=== PATIENT | male | born 1965 | race Caucasian/White ===

== ENCOUNTER 2019-06-04 09:49 | Emergency (ER) | payer SELFPAY ==
[2019-06-04] MEDS ORDERED: Acetaminophen 500 MG TAB ONE ×2 (10:45→10:49)
[2019-06-04] MEDS ORDERED: Ketorolac Tromethamine 30 MG/ML VIAL ONE (10:45)
== END 2019-06-04 11:04 | disposition home or self-care (01) ==
LOC: ERS 09:49
DX: K02.9 Dental caries, unspecified (principal); F41.9 Anxiety disorder, unspecified; F17.210 Nicotine dependence, cigarettes, uncomplicated; F31.9 Bipolar disorder, unspecified; F20.9 Schizophrenia, unspecified
CPT/HCPCS: 96372; 99282; J1885